=== PATIENT | female | born 1945 | race Caucasian/White ===

== ENCOUNTER 2018-02-25 07:28 | Inpatient (IN) ==
[2018-02-25] MEDS ORDERED: Diphtheria/Tetanus/Pertussis Vaccine Inj 0.5 ML Syringe IM ONE (07:36)
[2018-02-25] MEDS ORDERED: ceFAZolin 2 GM Premix Inj 2 GM/50 ML PIGGYBACK IV.SIG ONE (07:36)
[2018-02-25] MEDS ORDERED: Morphine Sulfate Inj 2 MG/ML Vial ONE ×2 (07:38→07:45)
[2018-02-25 07:51] LABS: Baso # (Auto) 0.1 th/mm3 (0.0-0.2); Baso % (Auto) 0.9 % (0.0-2.0); Eos # (Auto) 0.2 th/mm3 (0.0-0.4); Eos % (Auto) 1.7 % (0.0-4.0); Hematocrit 34.5 % (35.0-46.0); Hemoglobin 11.5 gm/dL (11.6-15.3); Lymph % (Auto) 44.1 % (9.0-44.0); Mean Corpuscular HGB Conc 33.4 % (32.0-36.0); Mean Corpuscular Hemoglobin 29.5 pg (27.0-34.0); Mean Corpuscular Volume 88.1 fL (80.0-100.0); Mean Platelet Volume 8.4 fL (7.0-11.0); Mono # (Auto) 1.1 th/mm3 (0.0-0.9); Mono % (Auto) 8.1 % (0.0-8.0); Neut # (Auto) 6.2 th/mm3 (1.8-7.7); Neut % (Auto) 45.2 % (16.0-70.0); Platelet Count 385 th/mm3 (150-450); Red Blood Count 3.92 mil/mm3 (4.00-5.30); Red Cell Distribution Width 13.7 % (11.6-17.2); White Blood Count 13.7 th/mm3 (4.0-11.0)
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
[2018-02-25 08:02] LABS: Activated Partial Thrombo Time 24.9 sec (23.4-31.7); INR 1.1 Ratio; Prothrombin Time 11.4 sec (9.8-11.6)
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
[2018-02-25 08:24] LABS: Acanthocytes 1+; Howell-Jolly Bodies Present; Lymphocytes 39 % (9-44); Monocytes 4 % (0-8)
[2018-02-25 08:25] LABS: Ovalocytes 1+
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
[2018-02-25] MEDS ORDERED: Naloxone Inj 0.4 MG/ML Vial IV.PUSH PRN (08:32)
[2018-02-25] MEDS ORDERED: Bisacodyl 10 MG Supp RECTAL PRN (08:32)
[2018-02-25] MEDS ORDERED: Post-op Orders (for Pharmacy) OTHER ONE (08:32)
[2018-02-25 08:42] LABS: Platelet Estimate Normal (Normal); Platelet Morphology Normal (Normal)
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
[2018-02-25] MEDS ORDERED: ceFAZolin Inj 1,000 MG in Sodium Chlor 0.9% Inj 100 ML IV.SIG SCH (09:00)
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
[2018-02-25] MEDS: Famotidine 20 MG Tablet PO SCH ×2 (09:31→20:20)
[2018-02-25] MEDS: Morphine Inj 4 MG/ML Vial IV.PUSH PRN ×3 (09:31→15:26)
[2018-02-25] MEDS: Senna/Docusate Sodium 8.6/50 MG Tablet PO SCH ×2 (09:31→20:20)
[2018-02-25] MEDS: Sod Chloride 0.9% Inj 1,000 ML IV.CONT SCH ×2 (09:37→19:37)
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
[2018-02-25] MEDS ORDERED: Lidocaine 1% Inj 50 ML Vial ONE (10:59)
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
[2018-02-25] MEDS: ceFAZolin 1 GM Premix Inj 1 GM/50 ML PIGGYBACK IV.SIG SCH (15:26)
[2018-02-25] MEDS: Enoxaparin Inj 40 MG/0.4 ML Syringe SQ SCH (15:26)
--- NOTE | 2018-02-25 15:34 | ECHRPT ---
Indication: CONCLUSIONS Normal left ventricular size. Wall thickness is normal. The left ventricular systolic function is normal with an estimated ejection fraction in the range of 55-60%. There is mild tricuspid valve regurgitation. The estimated pulmonary arterial pressure is 35 mmHg. Mild pulmonary valve regurgitation. BP: / HR: Rhythm: Sinus MEASUREMENTS (Male / Female) Normal Values Technical Quality:Fair 2D ECHO LV Diastolic Diameter PLAX 4.1 cm 4.2 - 5.9 / 3.9 - 5.3 cm LV Systolic Diameter PLAX 2.8 cm IVS Diastolic Thickness 0.9 cm 0.6 - 1.0 / 0.6 - 0.9 cm LVPW Diastolic Thickness 0.9 cm 0.6 - 1.0 / 0.6 - 0.9 cm LV Relative Wall Thickness 0.4 RV Internal Dim ED PLAX 2.7 cm LVOT Diameter 1.8 cm Aortic Root Diameter 3.0 cm LA Systolic Diameter LX 3.0 cm 3.0 - 4.0 / 2.7 - 3.8 cm DOPPLER AV Peak Velocity 141.0 cm/s AV Peak Gradient 8.0 mmHg LVOT Peak Velocity 119.0 cm/s LVOT Peak Gradient 5.7 mmHg AV Area Cont Eq pk 2.1 cm MV Peak Velocity 105.0 cm/s MV Peak Gradient 4.4 mmHg MV Mean Velocity 55.5 cm/s MV Mean Gradient 1.0 mmHg Mitral E Point Velocity 60.2 cm/s Mitral A Point Velocity 95.8 cm/s Mitral E to A Ratio 0.6 LV E' Lateral Velocity 9.9 cm/s Mitral E to LV E' Lateral Ratio 6.1 LV E' Septal Velocity 7.0 cm/s Mitral E to LV E' Septal Ratio 8.6 TR Peak Velocity 250.0 cm/s TR Peak Gradient 25.0 mmHg Right Atrial Pressure 10.0 mmHg Pulmonary Artery Systolic Pressu 35.0 mmHg Right Ventricular Systolic Press 35.0 mmHg PV Peak Velocity 114.0 cm/s PV Peak Gradient 5.2 mmHg FINDINGS LEFT VENTRICLE Normal left ventricular size. Wall thickness is normal. The left ventricular systolic function is normal with an estimated ejection fraction in the range of 55-60%. RIGHT VENTRICLE Normal right ventricular size and systolic function. LEFT ATRIUM The left atrial size is normal. RIGHT ATRIUM The right atrial size is normal. ATRIAL SEPTUM Normal atrial septal thickness without atrial level shunting by limited color doppler interrogation. AORTA The aortic root and proximal ascending aorta are normal in size on limited imaging. MITRAL VALVE Structurally normal mitral valve. No mitral valve stenosis or regurgitation. AORTIC VALVE Trileaflet aortic valve. No aortic valve stenosis or regurgitation. TRICUSPID VALVE There is mild tricuspid valve regurgitation. The estimated pulmonary arterial pressure is 35 mmHg. PULMONARY VALVE Mild pulmonary valve regurgitation. VESSELS The inferior vena cava was not well visualized. PERICARDIUM No pericardial effusion. Lobito Victoria MD, FACC, [facility] [place] (Electronically Signed) Final Date:25 February 2018 15:33
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
[2018-02-26] MEDS: ceFAZolin 1 GM Premix Inj 1 GM/50 ML PIGGYBACK IV.SIG SCH ×4 (00:27→23:30)
[2018-02-26] MEDS: Sod Chloride 0.9% Inj 1,000 ML IV.CONT SCH (03:47)
[2018-02-26] MEDS ORDERED: Morphine Inj 4 MG/ML Vial IV.PUSH PRN (05:56)
[2018-02-26 05:57] LABS: Hematocrit 31.5 % (35.0-46.0); Hemoglobin 10.1 gm/dL (11.6-15.3); Mean Corpuscular HGB Conc 32.1 % (32.0-36.0); Mean Corpuscular Hemoglobin 28.7 pg (27.0-34.0); Mean Corpuscular Volume 89.2 fL (80.0-100.0); Mean Platelet Volume 9.1 fL (7.0-11.0); Platelet Count 280 th/mm3 (150-450); Red Blood Count 3.54 mil/mm3 (4.00-5.30); Red Cell Distribution Width 14.1 % (11.6-17.2); White Blood Count 12.5 th/mm3 (4.0-11.0)
[2018-02-26 06:23] LABS: Anion Gap 8 meq/L (5-15); Blood Urea Nitrogen 11 mg/dL (7-18); Calcium 8.1 mg/dL (8.5-10.1); Chloride 110 meq/L (98-107); Glomerular Filtration Rate Greater Than 89 mL/min (>89); Glucose,Random 100 mg/dL (74-106); Potassium 3.9 meq/L (3.5-5.1); Sodium 142 meq/L (136-145)
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
[2018-02-26 09:46] LABS: Lymphocytes 32 % (9-44); Monocytes 12 % (0-8)
[2018-02-26 09:51] LABS: Platelet Estimate Normal (Normal); Platelet Morphology Normal (Normal)
[2018-02-26] MEDS: Famotidine 20 MG Tablet PO SCH ×2 (11:03→21:12)
[2018-02-26] MEDS: Senna/Docusate Sodium 8.6/50 MG Tablet PO SCH ×2 (11:04→21:12)
[2018-02-26] MEDS: Enoxaparin Inj 40 MG/0.4 ML Syringe SQ SCH (12:05)
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
[2018-02-27] MEDS: Famotidine 20 MG Tablet PO SCH ×3 (07:45→21:54)
[2018-02-27] MEDS: ceFAZolin 1 GM Premix Inj 1 GM/50 ML PIGGYBACK IV.SIG SCH ×2 (07:45→16:17)
[2018-02-27] MEDS: Senna/Docusate Sodium 8.6/50 MG Tablet PO SCH ×3 (07:45→21:54)
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
[2018-02-27] MEDS: Enoxaparin Inj 40 MG/0.4 ML Syringe SQ SCH (12:15)
[2018-02-28] MEDS: ceFAZolin 1 GM Premix Inj 1 GM/50 ML PIGGYBACK IV.SIG SCH ×2 (01:30→09:28)
[2018-02-28] MEDS: Senna/Docusate Sodium 8.6/50 MG Tablet PO SCH ×2 (09:28→21:34)
[2018-02-28] MEDS: Famotidine 20 MG Tablet PO SCH ×2 (09:28→21:34)
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
[2018-02-28] MEDS ORDERED: Bisacodyl 10 MG Supp RECTAL ONE (13:00)
[2018-02-28] MEDS: Enoxaparin Inj 40 MG/0.4 ML Syringe SQ SCH (13:30)
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
[2018-03-01] MEDS: Senna/Docusate Sodium 8.6/50 MG Tablet PO SCH ×2 (09:19→19:59)
[2018-03-01] MEDS: Famotidine 20 MG Tablet PO SCH ×2 (09:19→19:59)
[2018-03-01] MEDS: Enoxaparin Inj 40 MG/0.4 ML Syringe SQ SCH (12:41)
--- NOTE | 2018-03-01 14:47 | P.DIET ---
Nutritional Evaluation Type of nutrition evaluation: initial Nutrition consult regarding: Diet Evaluation Nutrition screening: Weight Loss > 10 lbs Screening comments: 02/26 WLS Objective - Diagnosis open fracture right fibula, multi contusion - Objective Body Mass Index: 27.5 % IBW: 135 (IBW = 110lb) Body Weight Used for Calculations: Actual (67.7kg) Energy Needs - Lower Range (kCal/kg): 25 Energy Needs - Upper Range (kCal/kg): 30 Lower Limit kCal/kg (kCals): 1,693 Upper Limit kCal/kg (kCals): 2,031 Lower Limit Protein Factor (Grams per Kg): 1.1 Upper Limit Protein Factor (Grams per Kg): 1.3 Lower Protein Needs (Protein): 75 Upper Protein Needs (Protein): 88 Dietitian Reviewed in Medical Record: Current diet, Curent medications, Intake & Output, Labs, Medical history Diet Order: regular Oral Diet Intake Amount: Good 75-90% Objective Comments: LBM 02/25 03/01 s/p closure of laceration of R calf w/ small rotational flap of the skin Assessment Assessment: Pt currently at nutritional risk r/t reported unplanned wt loss. Pt currently on a regular diet and consuming a variable PO intake, around 50-100% for most meals. RD to recommend Ensure Enlive as PO supplement for additional nutrition. Will continue to monitor PO and supplement intake. Labs reviewed, dietitian following. Recommendations: 1. RD to recommend Ensure Enlive as PO supplement for additional nutrition 2. Will continue to monitor PO and supplement intake 3. Dietitian following Dietitian to Monitor: Lab values, Supplement acceptance, Intake & Output, Diet tolerance, Weight change, PO Intake, Medical course
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
[2018-03-02] MEDS: Famotidine 20 MG Tablet PO SCH ×2 (08:39→21:14)
[2018-03-02] MEDS: Senna/Docusate Sodium 8.6/50 MG Tablet PO SCH ×2 (08:40→21:14)
[2018-03-02] MEDS: Enoxaparin Inj 40 MG/0.4 ML Syringe SQ SCH (13:12)
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
[2018-03-03] MEDS: Famotidine 20 MG Tablet PO SCH ×2 (08:36→21:55)
[2018-03-03] MEDS: Senna/Docusate Sodium 8.6/50 MG Tablet PO SCH ×2 (08:36→21:55)
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
[2018-03-03] MEDS: Enoxaparin Inj 40 MG/0.4 ML Syringe SQ SCH (13:55)
[2018-03-04] MEDS: Famotidine 20 MG Tablet PO SCH (08:15)
[2018-03-04] MEDS: Senna/Docusate Sodium 8.6/50 MG Tablet PO SCH (08:15)
[2018-03-04] MEDS: Enoxaparin Inj 40 MG/0.4 ML Syringe SQ SCH (13:13)
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
== END 2018-03-04 14:54 | DRG 464 ==
LOC: NEPI 07:28 → EDBD 08:31 → N03 08:31 → N06 02-26 17:21
PROVIDERS: ADMIT Surgery; ATTEND Surgery
CPT/HCPCS: 70450; 71010; 71045; 71260; 72125; 72170; 73020; 73560; 73590; 74177; 80048; 85025; 85610; 85730; 86850; 86900; 86901; 90471; 90715; 90765; 90775; 93306; 93880; 96365; 96375; 97110; 97163; 97530; 99285; 99291; G0390; J0690; J1650; J2270; J2405; J7030; L1830; Q9967